=== PATIENT | male | born 1975 | race Caucasian/White ===

== ENCOUNTER 2025-10-30 13:39 | Emergency (ER) | payer SELFPAY ==
[~2025-10-30] VITALS: Ht 175.3 cm; Wt 91.0 kg
[2025-10-30 13:44] VITALS: BP 147/98; PULSE 126; RESP 16; TEMP 98.8; O2SAT 98
[2025-10-30 14:28] LABS: BASOPHILS % 0.9 % (0.0-2.0); EOSINOPHILS % 0.8 % (0.0-5.0); HEMATOCRIT. 45.5 % (42.0-52.0); HEMOGLOBIN. 15.4 g/dL (14.0-18.0); LYMPHOCYTES % 29.5 % (20.0-50.0); MEAN PLATELET VOLUME 6.9 fl (7.4-10.4); MONOCYTES % 9.8 % (2.0-8.0); NEUTROPHILS % 59.0 % (40.0-76.0); PLATELET 321 x1000/uL (130-400); RED BLOOD CELL COUNT 4.89 mill/uL (4.7-6.1); RED CELL DISTRIBUTION WIDTH 13.6 % (11.6-14.6)
[2025-10-30 14:43] LABS: CREATININE 1.0 mg/dL (0.6-1.3); UREA NITROGEN BLOOD 9 mg/dL (9-23)
[2025-10-30 14:54] LABS: ETHANOL BLOOD 312 mg/dL (<10)
== END 2025-10-30 18:22 | disposition home or self-care (01) ==
LOC: ER 13:39
DX: F10.129 Alcohol abuse with intoxication, unspecified (principal); Y90.9 Presence of alcohol in blood, level not specified
CPT/HCPCS: 36415; 80048; 80320; 85025; 99283; G0480